=== PATIENT | female | born 1980 | race Caucasian/White ===

== ENCOUNTER 2016-12-07 18:19 | Emergency (ER) | payer BC, OTHER ==
[2016-12-07 19:47] LABS: HEMOGLOBIN 12.5 gm/dl (12.3-15.3); RED BLOOD COUNT 3.87 M/UL (4.00-5.10); WHITE BLOOD COUNT 8.3 K/UL (4.5-11.0)
[2016-12-07 20:08] LABS: BUN/CREATININE RATIO 11 (0-10)
== END 2016-12-07 22:40 | disposition home or self-care (01) ==
LOC: ER1 18:19
PROVIDERS: Physician Assistant
DX: K59.00 Constipation, unspecified (principal); N39.0 Urinary tract infection, site not specified; R07.89 Other chest pain; E78.5 Hyperlipidemia, unspecified; F17.210 Nicotine dependence, cigarettes, uncomplicated; Z91.041 Radiographic dye allergy status; Z79.899 Other long term (current) drug therapy
CPT/HCPCS: 36415; 71020; 80053; 81001; 82550; 82553; 83605; 83690; 83874; 84484; 84703; 85025; 85379; 86140; 87077; 87081; 87086; 87186; 87880; 93005; 96361; 96365; 96375; 96376; 99284; C9113; J0696; J2270; J2405; J7050; Q9962

== ENCOUNTER 2017-02-28 18:57 | Emergency (ER) | payer OTHER | END 2017-02-28 23:20 | disposition home or self-care (01) | LOC: ER1 18:57 | DX: S09.90XA Unspecified injury of head, initial encounter (principal); Z79.899 Other long term (current) drug therapy; Y04.0XXA Assault by unarmed brawl or fight, initial encounter | CPT/HCPCS: 70450; 71020; 72125; 84703; 96372; 99284; J1885 ==

== ENCOUNTER 2021-04-06 09:10 | Emergency (ER) | payer BC ==
[2021-04-06 10:57] LABS: HEMOGLOBIN 10.9 gm/dl (12.3-15.3); RED BLOOD COUNT 3.48 M/UL (4.00-5.10); WHITE BLOOD COUNT 5.4 K/UL (4.5-11.0)
[2021-04-06 11:20] LABS: BUN/CREATININE RATIO 10 (0-10)
== END 2021-04-06 14:30 | disposition home or self-care (01) ==
LOC: ER1 09:10
PROVIDERS: Physician Assistant
DX: S16.1XXA Strain of muscle, fascia and tendon at neck level, initial encounter (principal); R44.3 Hallucinations, unspecified; Z90.49 Acquired absence of other specified parts of digestive tract; W01.0XXA Fall on same level from slipping, tripping and stumbling without subsequent striking against object, initial encounter
CPT/HCPCS: 70450; 71045; 72125; 80053; 80307; 81001; 82550; 82553; 83874; 84484; 84703; 85025; 93005; 96374; 99284; J1885